=== PATIENT | female | born 1965 | race Two or more races ===

== ENCOUNTER 2023-03-30 22:27 | Emergency (ER) | payer OTHER ==
[~2023-03-30] VITALS: Ht 157.5 cm; Wt 71.7 kg
[2023-03-30] MEDS ORDERED: KETOROLAC TROMETHAMINE INJ 60 MG/2 ML VIAL IM ONE (23:00)
[2023-03-30] MEDS ORDERED: CYCLOBENZAPRINE 10 MG TABLET PO ONE (23:00)
[2023-03-30] MEDS ORDERED: KETOROLAC TROMETHAMINE INJ 30 MG/ML VIAL ONE (23:01)
[2023-03-30] MEDS ORDERED: CYCLOBENZAPRINE 10 MG TABLET ONE (23:02)
[2023-03-30] MEDS ORDERED: CYCL5TAB PO (23:12)
[2023-03-30 23:43] VITALS: BP 137/91; TEMP 98.7; O2SAT 97
== END 2023-03-30 23:43 | disposition home or self-care (01) ==
LOC: ER 22:33
DX: M54.50 Low back pain, unspecified (principal); I10 Essential (primary) hypertension; Z98.890 Other specified postprocedural states
CPT/HCPCS: 99283; 96372; J1885